=== PATIENT | male | born 2000 | race Caucasian/White ===

== ENCOUNTER 2023-12-24 20:45 | Emergency (ER) | payer BC ==
[2023-12-24 21:59] LABS: #Basophils 0.05 10x3/uL (0.0-0.2); %Basophils 0.7 % (0.0-1.0); %Eosinophils 3.1 % (0.0-10.0); %Lymphocytes 38.9 % (21.0-51.0); %Monocytes 6.7 % (0.0-10.0); %Neutrophils 50.2 % (42.0-75.0); Hematocrit 43.5 % (42.0-52.0); Hemoglobin 15.1 g/dL (14.0-18.0); Mean Corpuscular HGB CONC 34.7 g/dL (32.0-36.0); Mean Corpuscular Hemoglobin 28.2 pg (27.0-31.0); Mean Corpuscular Volume 81.3 fL (78.0-98.0); Mean Platelet Volume 9.6 fL (7.4-10.4); Platelet Count 263 10x3/uL (130-400); RBC Distribution Width 11.9 % (11.5-14.5); Red Blood Cell (RBC) Count 5.35 mill/uL (4.70-6.10)
[2023-12-24 23:20] LABS: ALT (SGPT) 22 U/L (8-55); AST (SGOT) 12 U/L (5-34); Albumin 4.1 g/dL (3.5-5.0); Alkaline Phosphatase 111 U/L (40-110); Anion Gap 18 mmol/L (10-20); BUN (Urea Nitrogen) 16 mg/dL (8.9-20.6); Bilirubin, Total 0.7 mg/dL (0.2-1.2); Calc. Creatinine Clearance 0 mL/min (70-130); Calcium 9.5 mg/dL (7.8-10.44); Carbon Dioxide 22 mmol/L (22-29); Chloride 102 mmol/L (98-107); Estimated GFR 95; Globulin 3.3 g/dL (2.4-3.5); Glucose 427 mg/dL (70-105); Potassium 4.4 mmol/L (3.5-5.1); Protein, Total 7.4 g/dL (6.0-8.3); Sodium 138 mmol/L (136-145)
== END 2023-12-24 23:38 | disposition home or self-care (01) ==
LOC: ERS 20:45
DX: R73.9 Hyperglycemia, unspecified (principal); B37.0 Candidal stomatitis
CPT/HCPCS: 36415; 36416; 80053; 80061; 82010; 82043; 83036; 83690; 84443; 85025; 93005; 99285

== ENCOUNTER 2024-01-15 08:52 | Outpatient (CLI) | payer BC | END 2024-01-15 08:53 | disposition home or self-care (01) | LOC: DTY/OP 08:52 | DX: E11.9 Type 2 diabetes mellitus without complications (principal) | CPT/HCPCS: 97802 ==